=== PATIENT | female | born 1960 | race African-American/Black ===

== ENCOUNTER 2020-01-12 22:57 | Emergency (ER) | payer MEDICARE, OTHER ==
[~2020-01-12] VITALS: Ht 162.6 cm; Wt 75.0 kg
[~2020-01-12 22:57] MED LIST: AMLO5TAB4 PO; ASPI-886 PO; ONDA4TAB7 PO; PANT40TA77 PO
[2020-01-12 23:06] VITALS: BP 157/79
--- NOTE | 2020-01-12 23:22 | PHYS DOC ---
Past Medical History Past Medical History: Diabetes-Type II, Hypertension Past Surgical History: No Surgical History Smoking Status: Current Every Day Smoker Alcohol Use: None Drug Use: None General Adult EDM: Chief Complaint: ABDOMINAL PAIN HPI: HPI: Patient is a 59 year [id number] female past medical history of diabetes hypertension presents with a chief complaint of left lower quadrant abdominal pain. Patient states abdominal pain is been ongoing since yesterday. Patient states she has neck occasional radiation to the left flank. Patient denies any associated nausea or vomiting. Patient states she is been constipated she denies any diarrhea. Patient denies any urinary symptoms. Patient is surgical history include a hysterectomy. Review of Systems: Review of Systems: Constitutional: Denies fever or chills. [] Eyes: Denies change in visual acuity. [] HENT: Denies nasal congestion or sore throat. [] Respiratory: Denies cough or shortness of breath. [] Cardiovascular: Denies chest pain or edema. [] GI: Denies , nausea, vomiting, bloody stools or diarrhea. [Positive abdominal pain positive constipation] : Denies dysuria. [] Musculoskeletal: Denies back pain or joint pain. [] Integument: Denies rash. [] Neurologic: Denies headache, focal weakness or sensory changes. [] Endocrine: Denies polyuria or polydipsia. [] Lymphatic: Denies swollen glands. [] Psychiatric: Denies depression or anxiety. [] Heart Score: Risk Factors: Risk Factors: DM, Current or recent (<one month) smoker, HTN, HLP, family history of CAD, obesity. Risk Scores: Score 0 - 3: 2.5% MACE over next 6 weeks - Discharge Home Score 4 - 6: 20.3% MACE over next 6 weeks - Admit for Clinical Observation Score 7 - 10: 72.7% MACE over next 6 weeks - Early Invasive Strategies Allergies: Allergies: Allergies Coded Allergies Type Severity Reaction Last Updated Verified No Known Drug Allergies 07/05/14 No Physical Exam: PE: Constitutional: Well developed, well nourished, no acute distress, non-toxic appearance. [] HENT: Normocephalic, atraumatic, bilateral external ears normal, oropharynx moist, no oral exudates, nose normal. [] Eyes: PERRLA, EOMI, conjunctiva normal, no discharge. [] Neck: Normal range of motion, no tenderness, supple, no stridor. [] Cardiovascular:Heart rate regular rhythm, no murmur [] Lungs & Thorax: Bilateral breath sounds clear to auscultation [] Abdomen: Bowel sounds normal, soft, no tenderness, no masses, no pulsatile masses. [] Skin: Warm, dry, no erythema, no rash. [] Back: No tenderness, no CVA tenderness. [] Extremities: No tenderness, no cyanosis, no clubbing, ROM intact, no edema. [] Neurologic: Alert and oriented X 3, normal motor function, normal sensory function, no focal deficits noted. [] Psychologic: Affect normal, judgement normal, mood normal. [] Current Patient Data: Vital Signs: Vital Signs Date Time Temp Pulse Resp B/P (MAP) Pulse Ox O2 Delivery O2 Flow Rate FiO2 01/12/20 23:06 97.8 90 18 157/79 (105) 100 Room Air 97.8 EKG: EKG: [] Radiology/Procedures: Radiology/Procedures: [] Course & Med Decision Making: Course & Med Decision Making Pertinent Labs and Imaging studies reviewed. (See chart for details) [] Patient was evaluated for chief complaint. Work-up consisted of laboratory analysis and radiologic imaging. Results reviewed and discussed with patient. CT imaging per radiologist consistent with constipation. Patient's urine consistent with urinary tract infection. Patient discharged home with GoLYTELY and Macrobid. Eduard Disclaimer: Eduard Disclaimer: This electronic medical record was generated, in whole or in part, using a voice recognition dictation system. Departure Departure Impression: Primary Impression: Abdominal pain Additional Impressions: Constipation Urinary tract infection Disposition: 01 HOME, SELF-CARE Condition: STABLE Referrals: UNKNOWN PCP NAME (PCP) Patient Instructions: Abdominal Pain Scripts Peg 3350/Na Sulf,Bicarb,Cl/Kcl (GOLYTELY SOLUTION) 4,000 Ml Soln.recon 4000 ML PO 1X, #1 MISC drink 8oz q 10 minutes until clear Prov: JESSY RAM I DO 01/13/20 Nitrofurantoin Monohyd/M-Cryst (MACROBID 100 MG CAPSULE) 100 Mg Capsule 1 CAP PO BID for 5 Days, #10 CAP 0 Refills Prov: JESSY RAM DO 01/13/20 Justicifation of Admission Dx: Justifications for Admission: Justification of Admission Dx: N/A JESSY RAM DO Jan 12, 2020 23:22
[2020-01-12 23:32] LABS: BASO % 1 % (0-3); EOS # 0.3 x10^3/uL (0.0-0.7); EOS % 5 % (0-3); HEMATOCRIT 48.3 % (36.0-47.0); HEMOGLOBIN 16.4 g/dL (12.0-15.5); LYMPH # 2.7 x10^3/uL (1.0-4.8); LYMPH % 46 % (24-48); MEAN CORPUSCULAR HEMOGLOBIN 29 pg (25-35); MEAN CORPUSCULAR HGB CONC 34 g/dL (31-37); MEAN CORPUSCULAR VOLUME 84 fL (79-100); MONO # 0.9 x10^3/uL (0.0-1.1); MONO % 16 % (0-9); NEUT # 1.9 x10^3/uL (1.8-7.7); NEUT % 33 % (31-73); PLATELET COUNT 251 x10^3/uL (140-400); RED BLOOD COUNT 5.75 x10^6/uL (3.50-5.40); RED CELL DISTRIBUTION WIDTH 13.4 % (11.5-14.5); WHITE BLOOD COUNT 5.9 x10^3/uL (4.0-11.0)
[2020-01-12 23:39] LABS: CALCIUM 9.8 mg/dL (8.5-10.1); CREATININE 1.2 mg/dL (0.6-1.0); GFR 55.6; POTASSIUM 3.7 mmol/L (3.5-5.1)
[2020-01-12 23:46] LABS: ALBUMIN 3.8 g/dL (3.4-5.0); ALBUMIN/GLOBULIN RATIO 0.8 (1.0-1.7); TOTAL BILIRUBIN 0.3 mg/dL (0.2-1.0); TOTAL PROTEIN 8.3 g/dL (6.4-8.2)
[2020-01-13] MEDS ORDERED: IOHEXOL 300 MG/ML 100ML VIAL. IV ONE
[2020-01-13] MEDS ORDERED: CONTRAST GIVEN. MC PRN (00:15)
[2020-01-13 00:33] LABS: BILIRUBIN,URINE NEGATIVE (NEG); CLARITY,URINE CLEAR; COLOR,URINE YELLOW; NITRITE,URINE POSITIVE (NEG); PROTEIN,URINE NEGATIVE (NEG-TRACE); UROBILINOGEN,URINE 0.2 mg/dL (0.2 mg/dL)
[2020-01-13 00:38] LABS: BACTERIA,URINE MANY /HPF (0-FEW); HYALINE CASTS, URINE MODERATE /HPF; RBC,URINE 0 /HPF (0-2); SQUAMOUS EPITHELIAL CELL,UR FEW /LPF
--- NOTE | 2020-01-13 00:39 | RAD ---
PQRS Compliance Statement: One or more of the following individualized dose reduction techniques were utilized for this examination: 1. Automated exposure control 2. Adjustment of the mA and/or kV according to patient size 3. Use of iterative reconstruction technique CT ABD PELV W/ IV CONTRST ONLY Clinical Indication: Reason: llq abdominal pain, : Comparison: None. Technique: Helical CT imaging of the abdomen and pelvis is performed after 60 cc of Omnipaque 300 IV contrast. Oral contrast not administered. Findings: The lung bases are clear. The cardiac size is normal. Probably mild fatty infiltration of the liver. Focal fatty sparing along the gallbladder fossa. The gallbladder, spleen, pancreas, adrenal glands, abdominal aorta, and kidneys are normal. The stomach is unremarkable. Small fat-containing umbilical hernia. There is no dilated small bowel. There is large colon stool volume. No colon wall thickening is seen. The appendix is normal. There is no abdominal adenopathy or free fluid. The ovaries are symmetric. Hysterectomy. The urinary bladder is normal. Bilateral inguinal lymph nodes may be reactive. No acute bone abnormality. Degenerative endplate spurring. IMPRESSION: 1. No acute abdominal or pelvic abnormality. 2. Large colon stool volume suggests constipation. 3. Mild fatty infiltration of the liver. Electronically signed by: Fernando Sarah MD (01/13/2020 12:35 AM) [facility]
[2020-01-13] MEDS ORDERED: NITR100C62 PO (01:00)
[2020-01-13] MEDS ORDERED: PEG4000S8 PO (01:00)
== END 2020-01-13 01:26 | disposition home or self-care (01) ==
LOC: ER 22:57
DX: N39.0 Urinary tract infection, site not specified (principal); K59.00 Constipation, unspecified; E11.9 Type 2 diabetes mellitus without complications; I10 Essential (primary) hypertension; F17.200 Nicotine dependence, unspecified, uncomplicated; Z90.710 Acquired absence of both cervix and uterus
CPT/HCPCS: 36415; 74177; 80053; 81001; 85025; 87086; 99285; Q9967